=== PATIENT | female | born 1935 | race Caucasian/White ===

== ENCOUNTER 2016-09-26 02:06 | Observation (INO) | payer OTHER ==
[~2016-09-26] VITALS: Ht 157.5 cm; Wt 53.5 kg
[~2016-09-26 02:06] MED LIST: ARICEPT PO; NAMENDA PO
--- NOTE | 2016-09-26 17:00 | Operative Report ---
Operative/Inv Procedure Report Surgery Date: 09/26/16 Name of Procedure: Transurethral resection of bladder tumor Pre-Operative Diagnosis: bladder mass Post-Operative Diagnosis: same Estimated Blood Loss: 50ml to 100ml Surgeon/Forestry Fire Aid: AISHA AGOSTO MD Anesthesia: laryngeal mask airway Drains: 18fr devi Specimens: bladder chips Complications: none Condition: stable Operative Indication: bladder mass Operative/Procedure Note Note: Operative dictation on patient Magaly De La Rosa. She was identified in the holding area and consented for transurethral resection of bladder tumor. She received 10 days of antibiotics for diverticulitis with possible involvement of the bladder. She did feel better and felt that she had less abdominal pain. The risks benefits and alternatives of the transurethral resection of the bladder trauma was given and all questions were answered for her daughter and son. Patient was taken to the operating room placed on the operating table in the supine position. Once timeout was performed IV antibiotics were given and LMA anesthesia was started. Patient was placed in the dorsal lithotomy position prepped and draped in the standard sterile fashion. Cystoscopy was performed and the bladder was globally inspected. The ureteral orifices were in their normal anatomic location in the left lateral wall superior to the ureteral orifice there was a bladder mass/abnormality along the entire lateral wall in a circular fashion that was frondular with thickened mucosa. This was resected sequentially from the patient's right to the left. Point coagulation was performed for bleeders that were encountered. Intermittently bladder chips were removed with the Neocutis evacuator. There were times yellow fat was encountered to indicate depth of resection was to the fat layer. Bovie cautery was used to stop any bleeding and also at the edge of the tumor resection site. The bladder chips were sent to pathology in formalin. An 18 Kazakh Devi catheter was placed. Before and after pictures were taken. Patient tolerated the procedure well. Of note, the tumor was flat in configuration and with thickened frondular areas. The bladder wall was very thick atypical for a female bladder. Findings: left lateral wall bladder mass Discharge Disposition: PACU
--- NOTE | 2016-09-26 17:59 | Admission Core Measures ---
Admission Meds I reviewed the following Meds: Current Medications Sig/Anamaria Start time Last Medication Dose Stop Time Status Admin Acetaminophen 1,000 MG Q6H 09/26 1800 UNVr (Ofirmev) 09/27 1214 N/A 1 UNIT (No Carrier) Cefazolin Sodium 1,000 MG IQ8 09/27 0000 UNVr (Kefzol-Ancef Inj) 09/27 0801 Cefazolin Sodium 2,000 MG ONCE 09/26 0000 NR (Kefzol-Ancef Inj) 09/26 2359 Dextrose/Sodium 1,000 ML Q13H 09/26 1800 UNVr Chloride (D5-Normal Saline) Heparin Sodium 5,000 UNIT Q8 09/27 0600 UNVr (Porcine) Morphine Sulfate 2 MG Q3P PRN 09/26 1800 UNVr (Morphine) Morphine Sulfate 4 MG Q3P PRN 09/26 1800 UNVr (Morphine) Ondansetron HCl 4 MG Q6P PRN 09/26 1800 UNVr (Zofran) Oxycodone HCl 5 MG Q4-6 PRN PRN 09/26 1800 UNVr (Roxicodone) Oxycodone HCl 10 MG Q4-6 PRN PRN 09/26 1800 UNVr (Roxicodone) Acute Coronary Syndrome Inclusion Criteria ACS Diagnosis No Inpatient Core Measures LDL Reminder: If No, please order W/I first 24hr of stay Congestive Heart Failure Inclusion Criteria CHF Diagnosis No Cerebrovascular accident Inclusion Criteria CVA/TIA Diagnosis No Inpatient Core Measures Bedside Swallow Eval Reminder: If BSE failed, place ST order Antithrombotic Reminder: Order Antithrombotic Medication by end of day 2 Antithrombotic Reminder: Document Reason Antithrombotic Not ordered by end of day 2 AFIB/Flutter Reminder: If Present, add to problem list AFIB/Flutter Reminder: Order Anticoag Medication for pts with AFIB/Flutter Atherosclerosis Reminder: If Present, add to problem list LDL Reminder: If No, please order W/I first 24hr of stay PT Order Reminder: If No, please order Venous thromboembolism Inpatient Core Measures VTE Risk Factors: Age > 40, Surgery No Mech VTE prophylaxis d/t No contraindications No VTE Pharm Prophylaxis d/t No contraindications Inclusion Criteria - Per Current guidelines, there needs to be overlap - treatment for the first 5 days of Warfarin therapy. - Parenteral Anticoagulation (IV or SC) needs to be - given along with Warfarin therapy. VTE Diagnosis No VTE Type NONE VTE Confirmed by (Test) NONE Problem List As ranked by this Provider includes Assessment & Plan 1. Bladder tumor 2. History of transurethral destruction of bladder lesion
--- NOTE | 2016-09-26 19:00 | NUR ---
PT ARRIVED TO FLOOR FROM PACU AT 1900 VIA STRETCHER. WITH ASSISTANCE, PT AMBULATED TO HOSPITAL BED. PER PT, USES CANE AT BASELINE, LIVES WITH . PT A/V/OX2. HX OF DEMENTIA/ALZHEIMERS, PLEASANTLY CONFUSED- REORIENTED TO SURROUNDINGS. ON 2LNC, LCTA, NO DISTRESS NOTED. #20 RAC INFUSING D5NS @ 75ML/HR PER EMAR. MEDICATED WITH SCHEDULED IV TYLENOL, PT C/O SORENESS TO ABD PAIN 06/27. HOLT IN PLACE DRAINING CLEAR PINK URINE. PT EDUCATED ON HOLT. SKIN CLEAN DRY & INTACT. PT PLACED IN OBSERVATION, FORM COMPLETED. ORIENTED TO STAFF, CALL FERNANDES, & SURROUNDINGS. WILL CONTINUE TO MONITOR.
[2016-09-26 19:11] VITALS: BP 122/70
--- NOTE | 2016-09-26 22:29 | NUR ---
DR AGOSTO CALLED THIS RN AT APPROX 2019 TO SEE HOW PT WAS DOING. VERBAL ORDER PLACED PER PAPER CHART TO DRAW BEP. BEP DRAWN AND SENT TO LAB. PER DR AGOSTO, CALL WITH RESULTS. RESULTS CALLED TO DR AGOSTO AT 0. NA LEVEL 125. NEW VERBAL ORDER READ BACK & VERIFIED TO CHANGE IV FLUIDS AND FAXED TO PHARMACY. TO RECHECK LABS IN AM WELL.
[2016-09-26 22:41] VITALS: BP 140/70
--- NOTE | 2016-09-27 00:16 | Cons- Medical ---
HOA RICHMOND 09/27/16 0008: General Information and HPI Consulting Request Date of Consult: 09/26/16 Requested By: AISHA SERRANO MD Reason for Consult: hyponatremia Source of Information: patient, family, old records Exam Limitations: dementia, poor historian History of Present Illness: A medical consult was requested for 80 year old lady with pmh of systolic CHF ( apparently resolved to 50% EF),HLP, dementia,DM,HTN went under cystoscopy and bladder mass resection today, for management of hyponatremia. Patient at baseline dementia and was very limited history. Most of the information was obtained from medical records and patient's daughter Liane. Patient has been complaining of dysuria and frequency and hesitation Retzius couple of months with poor appetite and she was worked up by Dr. SERRANO in outpatient setting and it was revealed that there is a mass in the bladder and she underwent resection today. Patient also had episode of diverticulitis before the admission which was treated 10 days with ciprofloxacin and Flagyl. At the moment patient denies any chest pain, abdominal pain, nausea, vomiting, joint pain, fevers, chills. Patient does complain of mild to moderate irritation around the Solorio. Vital signs upon examination was within normal limits, patient was on 3 L oxygen with good O2 saturation. Postoperation BEP showed sodium of 125, chloride 92. Patient baseline BP showed sodium of 145 and chloride within normal limits with potassium of 5.1. Documents from outside the hospital showed that the patient underwent multiple medication such as Lasix, lisinopril, metformin, simvastatin does which are not reconciled in the system. abdominal CT august 2016 IMPRESSION: 1. Severe colonic diverticulosis with a segmental area of prominent mucosal wall thickening and trace pericolonic inflammatory stranding at the junction of the descending and sigmoid colon.There is soft tissue fullness inferior to this junction point and slightly superior to the bladder. An approximately 1.2 cm pocket of air in this region potentially represents a large colonic diverticulum, microcolonic perforation, or potentially air within the bladder. It is unclear whether this soft tissue fullness extends off the bladder or colon. Unfortunately, visualization in this area is suboptimal secondary to streak artifact from adjacent hip prosthesis. Comparison with prior imaging would be helpful. Additionally, direct bladder visualization may provide additional diagnostic information. Neoplasm in this region is not excluded. 2. Cholelithiasis. Allergies/Medications Allergies: Coded Allergies: No Known Allergies (09/25/16) Home Med List: [ARICEPT] DEMNENTIA (Reported) [NAMENDA] DEMENTIA (Reported) Review of Systems Review of Systems Constitutional: Reports: see HPI. Past History Medical History Blood Transfusion Hx: No Neurological: Alzheimer's disease, dementia EENT: NONE Cardiovascular: hypertension, hyperlipidemia Respiratory: NONE Gastrointestinal: diverticulitis Hepatic: NONE Renal: BLADDER TUMOR Musculoskeletal: osteoarthritis Psychiatric: NONE Endocrine: diabetes Blood Disorders: NONE Cancer(s): BLADDER TUMOR SOUND SYSTEM INSTALLER/Reproductive: HYSTERECTOMY Surgical History Surgical History: non-contributory Psychosocial History Smoking Status: Never Smoked Exam & Diagnostic Data Last 24 Hrs of Vital Signs/I&O Vital Signs Date Time Temp Pulse Resp B/P B/P Pulse O2 O2 Flow FiO2 Mean Ox Delivery Rate 09/26 2241 98.1 64 20 140/70 99 Nasal 3.0L Cannula 09/26 1911 97.1 61 18 122/70 94 Nasal 2.0L Cannula 09/26 1900 94 Nasal 2.0L Cannula Intake & Output 09/27 0800 09/27 0000 09/26 1600 Intake Total 1080 Output Total 750 Balance 330 Intake, IV 600 Intake, Oral 480 Output, Urine 750 Patient 118 lb Weight Physical Exam General Appearance: well developed/nourished, no apparent distress, alert, awake , comfortable, disoriented, which is her baseline as per isabel Head: atraumatic, normal appearance Eyes: Bilateral: normal appearance. Respiratory: lungs clear Cardiovascular: regular rate/rhythm, normal peripheral pulses Gastrointestinal: normal bowel sounds, soft, non-tender Extremities: no edema Last 24 Hrs of Labs/Sánchez: Laboratory Tests 09/26/162054: Anion Gap 10, Estimated GFR > 60, BUN/Creatinine Ratio 28.6 H Diagnostic Data EKG Results outside EKG showed ,NSR to acute stt changes Assessment/Plan Assessment/Plan A medical consult was requested for 80 year old lady with pmh of systolic CHF ( apparently resolved to 50% EF),HLP, dementia,DM,HTN went under cystoscopy and bladder mass resection today, for management of hyponatremia. Postoperation BEP showed sodium of 125, chloride 92. Patient baseline BP showed sodium of 145 and chloride within normal limits with potassium of 5.1. Patient is pleasantly disoriented at baseline per Daughter. physical exam did not show any signs of volume overload. assessment and plan #hyponatremia -Possibly due to usage of glycine for bladder irrigation -Continue the patient on 100 mL normal saline for now and check sodium at 2 AM further management will be provided upon the result of the next sodium level( sodium should not be increased more than 8 meq in 24 hours) -Check BEP and CBC at 6 am -Check urine lytes -check magnesium -According her daughter the last EF was 50% #bladder mass status post resection -Management per urology #DM -hold metforin, put the patient on sliding scale insulin and fingersticks #hyperLipidemia -would Suggest restarting home dose statin in the morning #hx of CHF,HTN -would Suggest continuing home dose lisinopril in the morning #dementia -would suggest starting home medication dosage in the morning #DVT prophylaxis with ALPS #plan was discussed with and would suggnest reconciling medication in the morning Problem List: 1. Bladder tumor Copies To: TRINY SMITH,AISHA Consult Acknowledgment - Thank you for your consult request. ANDIE SMITH, [facility] 09/27/16 0124: Assessment/Plan Consult Acknowledgment - Thank you for your consult request. Attending MD Review Statement Attending Statement Attending MD Statement: examined this patient, discuss w/resident/PA/GAS DERRICK OPERATOR, agreed w/resident/PA/GAS DERRICK OPERATOR Attending Assessment/Plan: 80 yo F with h/o Alzheimer's dementia, T2DM, HTN, HLD, NICM with chronic systolic heart failure (EF 17% August 2015) that subsequently resolved with EF 50- 55% (September 2016), mild to mod MR, underwent transurethral resection of bladder tumor on September [address] Serrano. Medicine consult was requested for management of hyponatremia. Patient is pleasantly confused (at baseline) and denies any symptoms. Meds include metformin, lisinopril, namenda, donepezil, metoprolol, lasix, pravastatin, effexor and aspirin. Vitals are stable, except for sats 99% on 3L (patient not on home O2). On examination, patient appears euvolemic. Labs: Na 125 (141 as outpatient), S. Osmolality 272, Mag 1.3, BUN 20. EKG: SR, LVH (09/20/16). 1. Asymptomatic hyponatremia (patient's mental status is at baseline) possibly in the setting of absorption of glycine irrigation solutions during TURBT. Glycine can lower serum sodium by increasing the extracellular fluid volume. Serum osmolality is not greatly reduced. Check urine osmolality and urine lytes. Will provide gentle IV fluids (NS) and recheck sodium in 4 hours. No need for hypertonic saline. Reassess need for further fluids, avoid overcorrection. Do not correct more than 8 meQ in 24 hours. Replete electrolytes. Repeat sodium at 2 AM increased to 130 (from 125) over 5 hours. Fluids were continued for next 3 hours and I have asked them discontinue it now. Please follow 6 AM labs. Please resume patient's home dose of lasix. DVT prophylaxis Alps. Full code.
[2016-09-27 07:07] VITALS: BP 112/60
[2016-09-27 08:26] LABS: ABSOLUTE BASOPHIL COUNT 0 /CUMM (0.0-0.2); ABSOLUTE EOSINOPHIL COUNT 0.2 /CUMM (0.0-0.7); ABSOLUTE GRANULOCYTE CT 3.4 /CUMM (1.4-6.5); ABSOLUTE LYMPH COUNT 1.3 /CUMM (1.2-3.4); ABSOLUTE MONOCYTE COUNT 0.4 /CUMM (0.10-0.60); BASOPHIL % 0.5 % (0.0-2.0); EOSINOPHIL % 3.4 % (0-5); GRANULOCYTE % 65.3 % (42.2-75.2); HEMATOCRIT 31.4 % (37-47); MEAN CORPUSCULAR HGB 25.8 PG (27.0-31.0); MEAN CORPUSCULAR HGB CONC 32.5 G/DL (33.0-37.0); MEAN CORPUSCULAR VOLUME 79.4 FL (81.0-99.0); MEAN PLATELET VOLUME 10.6 FL (7.4-10.4); PLATELET COUNT 200 /CUMM (130-400); RBC DISTRIBUTION WIDTH 15.3 % (11.5-14.5); RED BLOOD CELL CT 3.95 /CUMM (4.20-5.40); WHITE BLOOD CELL COUNT 5.3 /CUMM (4.8-10.8)
--- NOTE | 2016-09-27 10:41 | PN- Urology ---
Subjective Subjective: Pt doing well with no complaints. minimal abd discomfort. Review of Systems Constitutional: Reports: no symptoms. EENTM: Reports: no symptoms. Cardiovascular: Reports: no symptoms. Respiratory: Reports: no symptoms. Gastrointestinal: Reports: no symptoms. Genitourinary: Reports: no symptoms, pain. Musculoskeletal: Reports: no symptoms. Skin: Reports: no symptoms. Neurological/Psychological: Reports: no symptoms. Hematologic/Endocrine: Reports: no symptoms. Immunologic/Allergic: Reports: no symptoms. Objective Vital Signs and I&Os Vital Signs Date Time Temp Pulse Resp B/P B/P Pulse O2 O2 Flow FiO2 Mean Ox Delivery Rate 09/27 08 98 Nasal 2.0L Cannula 09/27 0707 98.3 88 20 112/60 98 Nasal 3.0L Cannula 09/26 2241 98.1 64 20 140/70 99 Nasal 3.0L Cannula 09/26 1911 97.1 61 18 122/70 94 Nasal 2.0L Cannula 09/26 1900 94 Nasal 2.0L Cannula Intake & Output 09/27 1600 09/27 0800 09/27 0000 09/26 1600 09/26 0800 09/26 0000 Intake Total 1080 Output Total 1850 750 Balance -1850 330 Intake, IV 600 Intake, Oral 480 Output, Urine 1850 750 Patient 53.524 kg Weight Physical Exam General Appearance: well developed/nourished, no apparent distress, alert, awake , comfortable Head: atraumatic, normal appearance Ears, Nose, Throat: normal ENT inspection Neck: normal inspection Respiratory: no respiratory distress Abdomen: soft, non-tender Rectal: deferred Extremities: normal inspection, no edema Neurologic/Psychiatric: awake, alert Skin: intact, normal color, warm/dry Reproductive: Normal female genitalia Current Medications: Current Medications Sig/Anamaria Start time Last Medication Dose Route Stop Time Status Admin Acetaminophen 1,000 MG Q6H 09/26 1800 AC 09/27 N/A 1 UNIT IV 09/27 1214 0616 Cefazolin Sodium 1,000 MG IQ8 09/27 0000 DC 09/27 IV 09/27 0801 0804 Cefazolin Sodium 2,000 MG ONCE 09/26 0000 DC IV 09/26 2359 Dexamethasone 4 MG .STK-MED ONE 09/26 1531 DC IM 09/26 1532 Dextrose/Sodium 1,000 ML Q13H 09/26 1800 DC 09/26 Chloride IV 1912 Donepezil HCl 10 MG DAILY 09/27 1000 AC 09/27 PO 0804 Fentanyl Citrate 200 MCG .STK-MED ONE 09/26 1531 DC IM 09/26 1532 Heparin Sodium 5,000 UNIT Q8 09/27 0600 AC 09/27 (Porcine) SC 0621 Hydromorphone HCl 2 MG .STK-MED ONE 09/26 1531 DC IM 09/26 1532 Insulin Aspart 0 TIDAC 09/27 0800 AC SC Memantine 10 MG DAILY 09/27 1000 AC 09/27 PO 0804 Morphine Sulfate 2 MG Q3P PRN 09/26 1800 AC IV Morphine Sulfate 4 MG Q3P PRN 09/26 1800 AC IV Ondansetron HCl 4 MG Q6P PRN 09/26 1800 AC IV Oxycodone HCl 5 MG Q4-6 PRN PRN 09/26 1800 AC 09/26 PO 2151 Oxycodone HCl 10 MG Q4-6 PRN PRN 09/26 1800 AC PO Sodium Chloride 1,000 ML Q10H 09/26 2230 DC 09/26 IV 2246 Results Last 48 Hours of Labs: Laboratory Tests 09/27 09/27 0630 0245 Chemistry Sodium (137 - 145 mmol/L) 137 Potassium (3.5 - 5.1 mmol/L) 4.9 Chloride (98 - 107 mmol/L) 101 Carbon Dioxide (22 - 30 mmol/L) 28 Anion Gap (5 - 16) 8 BUN (7 - 17 mg/dL) 15 Creatinine (0.5 - 1.0 mg/dL) 0.8 Estimated GFR (>60 ml/min) > 60 BUN/Creatinine Ratio (7 - 25 %) 18.8 Hematology CBC w Diff NO MAN DIFF REQ WBC (4.8 - 10.8 /CUMM) 5.3 RBC (4.20 - 5.40 /CUMM) 3.95 L Hgb (12.0 - 16.0 G/DL) 10.2 L Hct (37 - 47 %) 31.4 L MCV (81.0 - 99.0 FL) 79.4 L MCH (27.0 - 31.0 PG) 25.8 L RDW (11.5 - 14.5 %) 15.3 H Plt Count (130 - 400 /CUMM) 200 MPV (7.4 - 10.4 FL) 10.6 H Gran % (42.2 - 75.2 %) 65.3 Lymphocytes % (20.5 - 51.1 %) 24.0 Monocytes % (1.7 - 9.3 %) 6.8 Eosinophils % (0 - 5 %) 3.4 Basophils % (0.0 - 2.0 %) 0.5 Absolute Granulocytes (1.4 - 6.5 /CUMM) 3.4 Absolute Lymphocytes (1.2 - 3.4 /CUMM) 1.3 Absolute Monocytes (0.10 - 0.60 /CUMM) 0.4 Absolute Eosinophils (0.0 - 0.7 /CUMM) 0.2 Absolute Basophils (0.0 - 0.2 /CUMM) 0 PUBS MCHC (33.0 - 37.0 G/DL) 32.5 L Urines Urine Color (YEL,AMB,STR) PINK H Urine Clarity (CLEAR) HAZY H Urine pH (5.0 - 8.0) 6.5 Ur Specific [place] (1.001 - 1.035) <= 1.005 Urine Protein (NEG,<30 MG/DL) 30 H Urine Ketones (NEG) NEG Urine Nitrite (NEG) NEG Urine Bilirubin (NEG) NEG Urine Urobilinogen (0.1 - 1.0 EU/dl) 0.2 Ur Leukocyte Esterase (NEG) LARGE H Ur Microscopic SEDIMENT EXAMINED Urine RBC (0 - 5 /HPF) 25-50 H Urine WBC (0 - 2 /HPF) 15-25 H Ur Epithelial Cells (NONE,FEW) FEW Urine Bacteria (NEG/NONE) FEW H Urine Mucus (FEW,NONE) FEW Urine Hemoglobin (NEG) LARGE H Urine Glucose (N MG/DL) NEG 09/27 09/27 09/27 09/27 09/26 0200 0123 0123 0100 2055 Chemistry Sodium (137 - 145 mmol/L) 130 L 125 L Potassium (3.5 - 5.1 mmol/L) 4.5 4.7 Chloride (98 - 107 mmol/L) 96 L 92 L Carbon Dioxide (22 - 30 mmol/L) 29 24 Anion Gap (5 - 16) 5 10 BUN (7 - 17 mg/dL) 18 H 20 H Creatinine (0.5 - 1.0 mg/dL) 0.8 0.7 Estimated GFR (>60 ml/min) > 60 > 60 BUN/Creatinine Ratio (7 - 25 %) 22.5 28.6 H Serum Osmolality (285 - 295 MOSM/KG) 272 L Magnesium (1.6 - 2.3 mg/dL) 1.3 L Urines Urine Color Cancelled Urine Clarity Cancelled Urine pH Cancelled Ur Specific [place] Cancelled Urine Protein Cancelled Urine Ketones Cancelled Urine Nitrite Cancelled Urine Bilirubin Cancelled Urine Urobilinogen Cancelled Ur Leukocyte Esterase Cancelled Ur Microscopic Cancelled Urine Hemoglobin Cancelled Urine Osmolality (300 - 1000 MOSM/KG) Cancelled 79 L Ur Random Creatinine (mg/dL) 6.8 Ur Random Sodium (30 - 90 mmol/L) 9 L Ur Random Potassium (mmol/L) 6.6 Fraction Sodium Excret (<1% %) 0.7 Urine Glucose Cancelled Assessment/Plan Assessment/Plan 80yo femle with dementia and other PMH s/p TURBT POD#1. Doing well. Postop wiht hyponatermia from glycine irrigant used. Hyponatremia normalized adequately overnight with NS IVF. NA @ 120 postop then 130 at 2am and now 137. Pt is stable to be discharged with devi to leg bag. She will fu in the office next . Problem List: 1. Bladder tumor Core Measures/Miscellaneous Venous Thromboembolism VTE Risk Factors: Age > 40, Cancer/chemo/oth therapy, CHF or Resp failure VTE Contraindications: Active Bleeding No Pharm VTE Prophylaxis D/T: Active Bleeding VTE Diagnosis: No VTE Type: NONE VTE Confirmed by (Test): NONE Beta Janny Is Beta Janny a Home Med? Yes If Yes, Was This Ordered Today? Yes Antibiotics Is Patient on Antibiotics? No Attending MD Review Statement Attending Statement Attending MD Statement: examined this patient, discussed w/nursing
--- NOTE | 2016-09-27 10:43 | Patient Discharge Instructions ---
Discharge Instructions General Discharge Information You were seen/treated for: Bladder Tumor You had these procedures: TURBT Special Instructions: Continue Solorio for seven days. Please follow up with the Urologist, Dr Serrano on 10/02/2016. We have provided you with a referral. Diet Continue normal diet: Yes Activity Full Activity/No Limits: No Activity Self Limited: Yes (As Tolerated) Acute Coronary Syndrome Inclusion Criteria At DC or during hospital stay patient has or had the following: ACS DIAGNOSIS No Discharge Core Measures Meds if any: Prescribed or Continued at Discharge Meds if any: NOT Prescribed or Continued at Discharge Congestive Heart Failure Inclusion Criteria At DC or during hospital stay patient has or had the following: CHF DIAGNOSIS No Discharge Core Measures Meds if any: Prescribed or Continued at Discharge Meds if any: NOT Prescribed or Continued at Discharge Cerebrovascular accident Inclusion Criteria At DC or during hospital stay patient has or had the following: CVA/TIA Diagnosis No Discharge Core Measures Meds if any: Prescribed or Continued at Discharge Meds if any: NOT Prescribed or Continued at Discharge Venous thromboembolism Inclusion Criteria VTE Diagnosis No VTE Type NONE VTE Confirmed by (Test) NONE Discharge Core Measures - Per Current guidelines, there needs to be overlap - treatment for the first 5 days of Warfarin therapy. - If discharged on Warfarin prior to 5 days of - overlap therapy, the patient will need to be - assessed for post discharge needs including - *Post discharge parental anticoagulation - *Warfarin and/or parental anticoagulation education - *Follow up date to check INR post discharge At least 5 days overlap therapy as Inpatient No Meds if any: Prescribed or Continued at Discharge Note: Overlap Therapy is Warfarin and Anticoagulant Meds if any: NOT Prescribed or Continued at Discharge
--- NOTE | 2016-09-27 11:15 | NUR ---
0000 NA 125 ONLY.SEEN BY RESIDENT ON MEDICAL CONSULT.IVF TO NS @100ML/HR. REPEAT LYTES PLUS @ 0200 & REPORT RESULT TO MOD.HOLT CATH IN PLACED DRAINING PINK TINGED TO MELISSA URINE WITH SCANT SMALL BLOOD CLOTS NOTED. PT C/O HAVING THE URGE TO VOID.REASSURANCE GIVEN WITH LITTLE HELP.REMAINS ANXIOUS & NOT ABLE TO SLEEP. 0409 NA 130 NOW.REPORTED TO MOD.NO NEW ORDER RECEIVED. 0530 NS DECREASED TO 50ML/HR PER MOD. 0630 IVF STOPPED PER MOD.CONTINUES TO MONITOR LAB.
--- NOTE | 2016-09-27 12:17 | PN- Medicine Consult ---
Assessment/Plan Assessment/Plan Assessment: 80-year-old pleasant female with past medical history significant for type 2 diabetes mellitus, hypertension, hyperlipidemia, Alzheimer's dementia, CHF, mild -to-moderate MR, status post TURBT on September [address] Serrano and the medical team has been consulted for hyponatremia. Patient is mildly confused at baseline. Plan: Asymptomatic hyponatremia: Patient is status post TURBT, developing symptomatic hyponatremia with a sodium level of 125 most likely in the setting of glycine absorption which has been used as an irrigation solution during TURBT. She was started on gentle IV fluids and her sodium gradually improved from 125 1936 this morning. She did not require any hypertonic saline. Patient is currently doing fine with her electrolytes within normal limits. Patient has been discharged this morning by the primary team. Problem List: 1. Dilutional hyponatremia Subjective Subjective: Patient was seen and examined this morning on the bedside and was having breakfast. She reported no complaints and no overnight issues. She is waiting to be picked up by her to go home. Review of Systems Constitutional: Denies: no symptoms. Objective Last 24 Hrs of Vital Signs/I&O Vital Signs Date Time Temp Pulse Resp B/P B/P Pulse O2 O2 Flow FiO2 Mean Ox Delivery Rate 09/27 0800 98 Nasal 2.0L Cannula 09/27 0707 98.3 88 20 112/60 98 Nasal 3.0L Cannula 09/27 0000 99 Nasal 3.0L Cannula 09/26 2241 98.1 64 20 140/70 99 Nasal 3.0L Cannula 09/26 1911 97.1 61 18 122/70 94 Nasal 2.0L Cannula 09/26 1900 94 Nasal 2.0L Cannula Intake & Output 09/27 1600 09/27 0800 09/27 0000 Intake Total 950 1080 Output Total 2350 750 Balance -1400 330 Intake, IV 950 600 Intake, Oral 0 480 Number 0 Bowel Movements Output, Urine 2350 750 Patient 118 lb Weight Physical Exam General Appearance: well developed/nourished, no apparent distress, alert, awake Head: atraumatic Neck: supple Cardiovascular: regular rate/rhythm Respiratory: normal breath sounds Abdomen: normal bowel sounds Extremities: no edema Neurologic/Psychiatric: awake, alert, oriented x 3 Current Medications: Current Medications Sig/[place] Start time Last Medication Dose Route Stop Time Status Admin Acetaminophen 1,000 MG Q6H 09/26 1800 DC 09/27 N/A 1 UNIT IV 09/27 1214 0616 Cefazolin Sodium 1,000 MG IQ8 09/27 0000 DC 09/27 IV 09/27 0801 0804 Cefazolin Sodium 2,000 MG ONCE 09/26 0000 DC IV 09/26 2359 Dexamethasone 4 MG .STK-MED ONE 09/26 1531 DC IM 09/26 1532 Dextrose/Sodium 1,000 ML Q13H 09/26 1800 DC 09/26 Chloride IV 1912 Donepezil HCl 10 MG DAILY 09/27 1000 AC 09/27 PO 0804 Fentanyl Citrate 200 MCG .STK-MED ONE 09/26 1531 DC IM 09/26 1532 Heparin Sodium 5,000 UNIT Q8 09/27 0600 AC 09/27 (Porcine) SC 0621 Hydromorphone HCl 2 MG .STK-MED ONE 09/26 1531 DC IM 09/26 1532 Insulin Aspart 0 TIDAC 09/27 0800 AC SC Memantine 10 MG DAILY 09/27 1000 AC 09/27 PO 0804 Morphine Sulfate 2 MG Q3P PRN 09/26 1800 AC IV Morphine Sulfate 4 MG Q3P PRN 09/26 1800 AC IV Ondansetron HCl 4 MG Q6P PRN 09/26 1800 AC IV Oxycodone HCl 5 MG Q4-6 PRN PRN 09/26 1800 AC 09/26 PO 2151 Oxycodone HCl 10 MG Q4-6 PRN PRN 09/26 1800 AC PO Sodium Chloride 1,000 ML Q10H 09/26 2230 DC 09/26 IV 2246 Results Last 24 Hrs Lab/Sánchez Results: Laboratory Tests 09/27/16 0630: Anion Gap 8, Estimated GFR > 60, BUN/Creatinine Ratio 18.8, CBC w Diff NO MAN DIFF REQ, RBC 3.95 L, MCV 79.4 L, MCH 25.8 L, RDW 15.3 H, MPV 10.6 H, Gran % 65.3, Lymphocytes % 24.0, Monocytes % 6.8, Eosinophils % 3.4, Basophils % 0.5, Absolute Granulocytes 3.4, Absolute Lymphocytes 1.3, Absolute Monocytes 0.4, Absolute Eosinophils 0.2, Absolute Basophils 0, PUBS MCHC 32.5 L 09/27/16 0245: Urine Color PINK H, Urine Clarity HAZY H, Urine pH 6.5, Ur Specific [place] <= 1.005, Urine Protein 30 H, Urine Ketones NEG, Urine Nitrite NEG, Urine Bilirubin NEG, Urine Urobilinogen 0.2, Ur Leukocyte Esterase LARGE H, Ur Microscopic SEDIMENT EXAMINED, Urine RBC 25-50 H, Urine WBC 15-25 H, Ur Epithelial Cells FEW, Urine Bacteria FEW H, Urine Mucus FEW, Urine Hemoglobin LARGE H, Urine Glucose NEG 09/27/16 0200: Anion Gap 5, Estimated GFR > 60, BUN/Creatinine Ratio 22.5 09/27/16 0123: Urine Osmolality Cancelled 09/27/16 012: Urine Color Cancelled, Urine Clarity Cancelled, Urine pH Cancelled, Ur Specific [place] Cancelled, Urine Protein Cancelled, Urine Ketones Cancelled, Urine Nitrite Cancelled, Urine Bilirubin Cancelled, Urine Urobilinogen Cancelled, Ur Leukocyte Esterase Cancelled, Ur Microscopic Cancelled, Urine Hemoglobin Cancelled, Urine Glucose Cancelled 09/27/16 0100: Urine Osmolality 79 L, Ur Random Creatinine 6.8, Ur Random Sodium 9 L, Ur Random Potassium 6.6, Fraction Sodium Excret 0.7 09/26/162054: Anion Gap 10, Estimated GFR > 60, BUN/Creatinine Ratio 28.6 H, Serum Osmolality 272 L, Magnesium 1.3 L Microbiology 09/26 1600 URINE OR: Urine Culture - RECD Attending MD Review Statement Attending Sign Off Attending Cosign Statement: I have not: examined this patient, reviewed al EMR data, discussed mgmt plan w/samuel. Reason for Cont Hospitalizatn: TURBT s/p Hyponatremia
[2016-09-27 13:53] VITALS: BP 116/70
== END 2016-09-27 15:20 | disposition home health service (06) ==
LOC: STS 02:06 → 2NA 17:43 → PACUH 17:43 → ENRESERV 18:29 → ENTRNSPT 18:42 → 2NA 19:02 → CMPTRNSPT 19:05 → ENPENDDIS 09-27 14:50 → 2NA 09-27 15:20 → STS 10-03 07:00
PROVIDERS: Physician Assistant; ADMIT Urology
DX: D30.3 Benign neoplasm of bladder (principal); N30.00 Acute cystitis without hematuria; N30.20 Other chronic cystitis without hematuria; I10 Essential (primary) hypertension; E11.8 Type 2 diabetes mellitus with unspecified complications; Z79.84 Long term (current) use of oral hypoglycemic drugs; E78.5 Hyperlipidemia, unspecified; I50.9 Heart failure, unspecified; G30.9 Alzheimer's disease, unspecified; F02.80 Dementia in other diseases classified elsewhere, unspecified severity, without behavioral disturbance, psychotic disturbance, mood disturbance, and anxiety
CPT/HCPCS: 6030; 84133; 84300; 81001; 82436; 82570; 87071; 87086; 87147; 88305; 96372; 96374; 96375; G0378; J0131; J0690; J1100; J1644; J2405; J7042